=== PATIENT | female | born 2000 | race Caucasian/White ===

== ENCOUNTER 2020-08-14 17:00 | Emergency (ER) | payer SELFPAY ==
[2020-08-14 18:10] LABS: Bilirubin Neg (Negative); Blood, Urine 250 (Negative); Clarity Slightly Cloudy (Clear); Glucose, Urine (Dipstick) Normal (Negative); Ketone, Urine Negative (Negative); Leukocyte 25 (Negative); Nitrite Negative (Negative); Protein, Urine (Dipstick) 30 mg/dl (Neg-Trace); Specific Gravity, Urine 1.015 (1.002-1.036); Urobilinogen Normal mg/dL (Less than 2)
[2020-08-14 18:25] LABS: Pregnancy Test - Urine (BHCG) Negative (Negative); Pregu Control Background? CLEAR/WHITE (CLR/WHITE); Pregu Control Bar Appear? YES (CONTROL BAR); Specific Gravity 1.015 (1.002-1.036)
[2020-08-14 18:34] LABS: Bacteria/HPF 4+ HPF (None Seen); Mucous/LPF 2+ LPF (<2+)
[2020-08-14] MEDS ORDERED: Ciprofloxacin 500 MG TAB ONE (23:57)
[2020-08-17 20:08] LABS: Chlamydia by PCR Not Detected (NotDetected); GC by PCR Not Detected (NotDetected)
== END 2020-08-14 20:04 | disposition home or self-care (01) ==
LOC: CSHERS 17:00
DX: N39.0 Urinary tract infection, site not specified (principal); N76.0 Acute vaginitis; B37.3 Candidiasis of vulva and vagina
CPT/HCPCS: 76856; 81003; 81015; 81025; 87077; 87086; 87480; 87491; 87510; 87591; 87660